=== PATIENT | male | born 1965 | race Caucasian/White ===

== ENCOUNTER 2019-12-14 15:00 | Emergency (ER) | payer BC, OTHER ==
--- NOTE | 2019-12-14 15:04 | EDM.PDOC ---
ED HPI GENERAL MEDICAL PROBLEM - General Chief Complaint: Head Injury Stated Complaint: [facility] Time Seen by Provider: 12/14/19 15:03 - History of Present Illness INITIAL COMMENTS - FREE TEXT/NARRATIVE: 54-year-old male presents the emergency room after being brought in by the ambulance after falling and injuring his head and neck. 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 When he was done he was walking away from the baseball diamonds and just suddenly fell backwards striking the back of his head on the sidewalk I witnesses say he just fell he did not stumble he just fell backwards. Patient states he was little lightheaded and felt a little weak during this time but was not expecting to go down like that. Patient does not have a history of syncope. It is warm outside at 96 degrees. According to EMS the patient was awake when they got to him however had a bleeding laceration on the back of his head. The patient was okay on the sidewalk when they tried to move him to the gurney he had some involuntary shaking but stayed awake during all this time and then soon as he was able to rest on the gurney the shaking stopped. The patient was alert and oriented just felt weak. The patient's last tetanus shot was 2 years ago. - Related Data Allergies Allergy/AdvReac Type Severity Reaction Status Date / Time lidocaine Allergy Severe Anaphylactic Verified 12/14/19 15:09 Shock Home Meds: Home Meds Cyclobenzaprine [Flexeril] 10 mg PO DAILY 12/14/19 [History] Eszopiclone [Lunesta] 1 mg PO DAILY 12/14/19 [History] Past Medical History Psychiatric History: Reports: Other (See Below) Other Psychiatric History: insomnia Social & Family History - Family History Cardiac: Reports: Hypertension, [place] Endocrine/Metabolic: Reports: Diabetes, type II ED ROS GENERAL - Review of Systems Review Of Systems: See Below Constitutional: Reports: Weakness (Briefly before the event). Denies: No Symptoms HEENT: Reports: No Symptoms Respiratory: Reports: No Symptoms Cardiovascular: Reports: No Symptoms Endocrine: Reports: No Symptoms GI/Abdominal: Reports: No Symptoms : Reports: No Symptoms Musculoskeletal: Reports: No Symptoms, Other (neck pain) Skin: Reports: No Symptoms Neurological: Reports: Headache Psychiatric: Reports: No Symptoms Hematologic/Lymphatic: Reports: No Symptoms Immunologic: Reports: No Symptoms ED EXAM, GENERAL - Physical Exam Exam: See Below Exam Limited By: No Limitations General Appearance: Alert, No Apparent Distress Eye Exam: Bilateral Eye: EOMI, Normal Inspection, PERRL Ears: Normal External Exam, Normal Canal, Hearing Grossly Normal, Normal TMs Nose: Normal Inspection, Normal Mucosa, No Blood Head: Other (He has a 2 cm laceration just below the midline of the occiput in a transverse orientation) Neck: Other (He had some vague discomfort at the base of the skull with a c- collar in place so I left the c-collar on after his C-spine was cleared I did take off the c-collar and he demonstrated good range of motion and did not really have much tenderness.) Respiratory/Chest: No Respiratory Distress, Lungs Clear, Normal Breath Sounds Cardiovascular: Regular Rate, Rhythm, No Edema, No Murmur GI/Abdominal: Normal Bowel Sounds, Soft, Non-Tender, No Organomegaly, No Diste ntion, No Abnormal Bruit, No Mass Back Exam: Normal Inspection, Other (In the course of the patient's evaluation he was logrolled and demonstrated no spinous process tenderness no signs of significant injury he did have some bruising that looked old on his right lower chest this was a small area roughly 1-1/2 cm round). No: CVA Tenderness (L), CVA Tenderness (R) Neurological: Alert, Oriented, Normal Cognition Psychiatric: Normal Affect, Normal Mood Skin Exam: Diaphoretic (Patient was diaphoretic upon arrival here but this did improve over time) Lymphatic: No Adenopathy ED GENERAL MEDICAL PROCEDURES - Laceration/Wound Repair Head Lac/wound length in cm: 4 Appearance: Subcutaneous, Irregular Distal NVT: Neuro & Vascular Intact Anesthetic Type: Local Local Anesthesia - Lidocaine (Xylocaine): 1% Plain Local Anesthetic Volume: 2cc Skin Prep: Saline Exploration/Debridement/Repair: Wound Explored, In a Bloodless Field, Explored to Base Closed with: Honeydew # of Sutures: 7 Tetanus Status Addressed: Yes (He is up-to-date) Complications: No Progress/Comments: Transverse laceration of the posterior scalp below the occiput irregular margins reapproximated using 7 elina without difficulty. Patient tolerated this well EKG INTERPRETATION Rhythm: NSR Rate (Beats/Min): 96 [place]: Normal P-Wave: Present QRS: Normal ST-T: Normal QT: Normal Comparison: No Change (No significant change from August 2015) EKG Interpretation Comments: Normal EKG Course - Vital Signs Last Recorded V/S: Last Vital Signs Temp 37.6 C 12/14/19 15:05 Pulse 126 H 12/14/19 15:05 Resp 16 12/14/19 15:05 BP 139/85 12/14/19 15:05 Pulse Ox 96 12/14/19 15:05 - Orders/Labs/Meds Orders: Active Orders 24 hr Category Date Time Status EKG Documentation Completion [RC] STAT Care 12/14/19 16:19 Active Lactated Ringers [Ringers, Lactated] 1,000 ml Med 12/14/19 15:30 Active IV ASDIRECTED Medication Orders Lactated Ringer's (Ringers, Lactated) 1,000 mls @ 150 mls/hr IV ASDIRECTED ISHA Last Admin: 12/14/19 17:16 Dose: 150 mls/hr Documented by: HERMMIC Labs: Laboratory Tests 12/14/19 12/14/19 Range/Units 16:04 16:04 WBC 8.40 (4.23-9.07) K/mm3 RBC 3.32 L (4.63-6.08) M/mm3 Hgb 12.2 L D (13.7-17.5) gm/dl Hct 36.7 L (40.1-51.0) % MCV 110.5 H (79.0-92.2) fl MCH 36.7 H (25.7-32.2) pg MCHC 33.2 (32.2-35.5) g/dl RDW Std Deviation 49.1 H (35.1-43.9) fL Plt Count 77 L (163-337) K/mm3 MPV 9.4 (9.4-12.3) fl Neut % (Auto) 86.8 H (34.0-67.9) % Lymph % (Auto) 3.3 L (21.8-53.1) % Mathews % (Auto) 9.2 (5.3-12.2) % Eos % (Auto) 0.1 L (0.8-7.0) Baso % (Auto) 0.2 (0.1-1.2) % Neut # (Auto) 7.29 H (1.78-5.38) K/mm3 Lymph # (Auto) 0.28 L (1.32-3.57) K/mm3 Mathews # (Auto) 0.77 (0.30-0.82) K/mm3 Eos # (Auto) 0.01 L (0.04-0.54) K/mm3 Baso # (Auto) 0.02 (0.01-0.08) K/mm3 Manual Slide Review Abnormal smear Sodium 135 L (136-145) mEq/L Potassium 4.7 (3.5-5.1) mEq/L Chloride 97 L (98-107) mEq/L Carbon Dioxide 22 (21-32) mEq/L Anion Gap 20.7 H (5-15) BUN 10 (7-18) mg/dL Creatinine 2.1 H (0.7-1.3) mg/dL Est Cr Clr Drug Dosing 40.45 mL/min Estimated GFR (MDRD) 33 (>60) mL/min BUN/Creatinine Ratio 4.8 L (14-18) Glucose 79 (74-106) mg/dL Calcium 9.5 (8.5-10.1) mg/dL Total Bilirubin 1.4 H (0.2-1.0) mg/dL AST 141 H (15-37) U/L ALT 57 (16-63) U/L Alkaline Phosphatase 76 (46-116) U/L Total Protein 7.7 (6.4-8.2) g/dl Albumin 4.1 (3.4-5.0) g/dl Globulin 3.6 gm/dL Albumin/Globulin Ratio 1.1 (1-2) Meds: Medications Generic Name Dose Route Start Last Admin Trade Name Freq PRN Reason Stop Dose Admin Lactated Ringer's 1,000 mls @ 150 mls/hr 12/14/19 15:30 12/14/19 17:16 Ringers, Lactated IV 150 mls/hr ASDIRECTED ISHA Administration Discontinued Medications Generic Name Dose Route Start Last Admin Trade Name Freq PRN Reason Stop Dose Admin Lactated Ringer's 1,000 mls @ 999 mls/hr 12/14/19 15:22 12/14/19 16:09 Ringers, Lactated IV 12/14/19 16:22 999 mls/hr .BOLUS ONE Administration Lidocaine HCl 5 ml 12/14/19 16:20 12/14/19 17:11 Xylocaine-Mpf 1% INJECT 12/14/19 16:21 Not Given ONETIME ONE Lidocaine HCl 10 ml 12/14/19 16:29 12/14/19 17:07 Xylocaine 1% INJECT 12/14/19 16:30 10 ml ONETIME ONE Administration - Re-Assessments/Exams Free Text/Narrative Re-Assessment/Exam: 12/14/19 16:34 Dr. Baker did call as his rfid engineer is down at this time he has some degenerative changes in the C-spine age-related changes in the head CT no acute changes with either. CBC shows a macrocytic process anemia developing 12/14/19 17:47 Ambulatory without too much difficulty he would like to go home Departure - Departure Time of Disposition: 17:47 Disposition: Home, Self-Care 01 Clinical Impression: Dehydration - Discharge Information Referrals: Benji Elise MD [Primary Care Provider] - Forms: ED Department Discharge Additional Instructions: Return to the emergency room with any questions problems or worsening symptoms. Return with any unusual behavior Push lots of fluids. Gatorade is a good fluid replacement. Eat light meals. Follow-up with your regular doctor and discuss your anemia. Sepsis Event Note (ED) - Focused Exam Vital Signs: Vital Signs Temp Pulse Resp BP Pulse Ox 12/14/19 15:05 37.6 C 126 H 16 139/85 96 - My Orders Last 24 Hours: My Active Orders 12/14/19 15:30 Lactated Ringers [Ringers, Lactated] 1,000 ml IV ASDIRECTED 12/14/19 16:19 EKG Documentation Completion [RC] STAT - Assessment/Plan Last 24 Hours: My Active Orders 12/14/19 15:30 Lactated Ringers [Ringers, Lactated] 1,000 ml IV ASDIRECTED 12/14/19 16:19 EKG Documentation Completion [RC] STAT
[2019-12-14 15:09] VITALS: BP 139/85; PULSE 126
[2019-12-14] MEDS ORDERED: Lactated Ringers 1,000 ML IV ONE (15:22)
[2019-12-14] MEDS ORDERED: Lactated Ringers 1,000 ML IV SCH (15:30)
[2019-12-14] MEDS ORDERED: Lidocaine 1% 10 ML MDV INJECT ONE (16:29)
--- NOTE | 2019-12-14 16:56 | CT ---
CT cervical spine Technique: Multiple axial sections were obtained from above C1 inferiorly to the mid T2 level. Reconstructed sagittal and coronal images were obtained. Comparison: No prior cervical spine imaging is available. Findings: Vertebral body heights and disc spaces are fairly well-preserved. Slight scattered posterior osteophytes are noted as well as minimal anterior osteophytes. Mild degenerative change is noted between the dens and anterior arch of C1. No central canal stenosis or neural foraminal stenosis is seen. No fracture or abnormal subluxation is appreciated. Moderate degenerative change is noted within both temporomandibular joints. Impression: 1. Degenerative change as described above. 2. No acute fracture or abnormal subluxation is seen on CT study of the cervical spine. Diagnostic code #2 This report was dictated in MDT
--- NOTE | 2019-12-14 16:56 | CT ---
Head CT Technique: Multiple axial sections through the brain were obtained. Comparison: No prior intracranial imaging is available. Findings: Ventricles along with basal cisterns and sulci over the convexities are mildly prominent. Very minimal areas of diminished density is noted within the periventricular white matter compatible with small vessel ischemic demyelination change. No other abnormal parenchymal densities are seen. No evidence of intracranial hemorrhage. No midline shift or mass-effect is seen. Visualized mastoid sinuses and visualized paranasal sinuses show nothing acute. No acute calvarial finding is seen. Impression: 1. Mild senescent change. 2. Nothing acute is seen on noncontrast head CT exam. Diagnostic code #2 This report was dictated in MDT
== END 2019-12-14 18:14 | disposition home or self-care (01) ==
LOC: JD.ED 15:00
DX: S01.01XA Laceration without foreign body of scalp, initial encounter (principal); E86.0 Dehydration; G47.00 Insomnia, unspecified; Z79.899 Other long term (current) drug therapy; Z88.4 Allergy status to anesthetic agent; W19.XXXA Unspecified fall, initial encounter; W22.8XXA Striking against or struck by other objects, initial encounter; Y92.481 Parking lot as the place of occurrence of the external cause
CPT/HCPCS: 12002; 36415; 70450; 72125; 80053; 85025; 93005; 96360; 96361; 99284; J2001; J7120; 93010; 99283

== ENCOUNTER 2024-02-12 01:54 | Emergency (ER) | payer BC, OTHER ==
[2024-02-12] MEDS ORDERED: Sodium Chloride 0.9% 10 ML Syringe FLUSH PRN (01:59)
[2024-02-12 02:23] VITALS: BP 142/89; PULSE 76
[2024-02-12 02:26] LABS: BASOPHILS ABSOLUTE AUTO 0.1 K/mm3 (0.0-0.2); BASOPHILS PERCENT AUTO 0.7 % (0.0-1.0); EOSINOPHILS PERCENT AUTO 0.4 % (0.0-6.0); HEMATOCRIT 37.7 % (42.0-52.0); IMMATURE GRAN ABSOLUTE AUTO 0.11 K/mm3 (0.00-0.05); IMMATURE GRAN PERCENT AUTO 1.4 % (0.0-0.4); LYMPHOCYTES PERCENT AUTO 13.1 % (24.0-44.0); MEAN CORPUSCULAR HEMOGLOBIN 39.2 pg (28.0-32.0); MEAN CORPUSCULAR HGB CONC 34.5 g/dl (32.0-36.0); MEAN CORPUSCULAR VOLUME 113.6 fl (83.0-99.0); MEAN PLATELET VOLUME 9.5 fl (9.4-12.4); MONOCYTES ABSOLUTE AUTO 0.9 K/mm3 (0.0-0.8); MONOCYTES PERCENT AUTO 11.5 % (0.0-8.0); NEUTROPHILS ABSOLUTE AUTO 5.6 K/mm3 (1.8-7.7); NEUTROPHILS PERCENT AUTO 72.9 % (41.0-71.0); PLATELET COUNT,PLT 118 K/mm3 (150-400); RED BLOOD CELL COUNT 3.32 M/mm3 (4.52-5.90); WHITE BLOOD CELL COUNT,WBC 7.65 K/mm3 (3.9-11.3)
[2024-02-12 02:47] LABS: A/G RATIO 1.3 (1-2); ALANINE AMINOTRANSFERASE,ALT 51 U/L (16-63); ALKALINE PHOSPHATASE 54 U/L (46-116); ANION GAP 16.2 (5-15); ASPARTATE AMNIOTRANSFERASE,AST 92 U/L (15-37); BILIRUBIN TOTAL 0.5 mg/dL (0.2-1.0); BLOOD UREA NITROGEN,BUN 30 mg/dL (7-18); C-REACTIVE PROTEIN <0.05 mg/dL (<0.30); CALCIUM 9.4 mg/dL (8.5-10.1); CARBON DIOXIDE,CO2 26 mEq/L (21-32); CHLORIDE,CL 102 mEq/L (98-107); EST CRCL DRUG DOSING (CG) 82.56 mL/min; ESTIMATED GFR 88 mL/min (>60); ETHANOL BLOOD MEDICAL 0.23 gm% (0.00); GLUCOSE RANDOM 98 mg/dL (70-99); MAGNESIUM 1.8 mg/dL (1.8-2.4); POTASSIUM,K 4.2 mEq/L (3.5-5.1); PROTEIN TOTAL,TP 7.2 g/dl (6.4-8.2); SODIUM,NA 140 mEq/L (136-145)
[2024-02-12 02:48] LABS: SLIDE REVIEW ABNORMAL SMEAR
[2024-02-12 03:21] LABS: APPEARANCE,URINE CLEAR (Clear); BILIRUBIN,URINE NEGATIVE (Negative); COLOR,URINE YELLOW (Yellow); GLUCOSE,URINE NEGATIVE (Negative); KETONES,URINE TRACE (Negative); LEUKOCYTE ESTERASE,URINE 1+ (Negative); NITRITE,URINE NEGATIVE (Negative); OCCULT BLOOD,URINE NEGATIVE (Negative); PH,URINE 6.5 (5.0-8.0); PROTEIN,URINE NEGATIVE (Negative); UROBILINOGEN,URINE 0.2 (0.2-1.0)
[2024-02-12 03:30] LABS: BACTERIA,URINE MODERATE /hpf (FEW); EPITHELIAL CELLS,URINE 0-5 /hpf (0-5); HYALINE CASTS,URINE 0-5 /lpf (0-5); MUCUS,URINE FEW /hpf (FEW); RBC,URINE 0-5 /hpf (0-5)
[2024-02-12 03:31] LABS: BARBITURATE SCREEN,URINE NEGATIVE (CUTOFF=200); BENZODIAZEPINES SCREEN,URINE NEGATIVE (CUTOFF=150); BUPRENORPHINE SCREEN,URINE NEGATIVE (CUTOFF=10); METHADONE SCREEN, URINE NEGATIVE (CUT0FF=200); METHAMPHETAMINES SCREEN, URINE NEGATIVE (CUTOFF=500); OXYCODONE SCREEN,URINE NEGATIVE (CUT0FF=100); THC SCREEN,URINE 20 NG/ML NEGATIVE (CUTOFF=50)
[2024-02-12 03:33] LABS: AMPHETAMINES SCREEN, URINE NEGATIVE (CUTOFF=500)
== END 2024-02-12 03:36 | disposition left against medical advice (07) ==
LOC: JD.ED 01:54
DX: S00.03XA Contusion of scalp, initial encounter (principal); S20.229A Contusion of unspecified back wall of thorax, initial encounter; R29.6 Repeated falls; F10.929 Alcohol use, unspecified with intoxication, unspecified; F17.210 Nicotine dependence, cigarettes, uncomplicated; Z88.8 Allergy status to other drugs, medicaments and biological substances; Z79.899 Other long term (current) drug therapy; W22.8XXA Striking against or struck by other objects, initial encounter
CPT/HCPCS: 36415; 70450; 70450-26; 72125; 72125-26; 72128; 72128-26; 72131; 72131-26; 80053; 80306; 80307; 81001; 83735; 85025; 86140; 87086; 99282; 99284